=== PATIENT | male | born 1975 | race African-American/Black ===

== ENCOUNTER 2017-09-02 00:38 | Emergency (ER) | payer MEDICAID ==
[~2017-09-02] VITALS: Ht 167.6 cm; Wt 65.8 kg
[2017-09-02 00:40] VITALS: BP 142/84
--- NOTE | 2017-09-02 00:44 | Emergency Room Report ---
History of Present Illness General Chief Complaint: Substance Abuse Source: Patient, EMS Present Illness HPI Is a 42-year-old male who is homeless. He was in a parking lot of a nearby apartment complex. Security called 911. Patient said that he was using methamphetamine and hour prior to arrival. Also said that he has a crazy ex- girlfriend whose been following him. He denies suicidal thoughts or homicidal thought. No other complaint. Allergies: Coded Allergies: No Known Allergies (Unverified , 09/02/17) Patient History Past Medical History: see triage record, old chart reviewed Past Surgical History: other Pertinent Family History: none Social History: Reports: smoking, drug use Immunizations: other Reviewed Nursing Documentation: PMH: Agreed, PSxH: Agreed Review of Systems Eye: Denies: eye pain, blurred vision ENT: Denies: ear pain, nose congestion, throat swelling Respiratory: Denies: cough, shortness of breath Cardiovascular: Denies: chest pain, palpitations Gastrointestinal: Denies: abdominal pain, diarrhea, nausea, vomiting Musculoskeletal: Denies: back pain, joint pain Skin: Denies: rash Neurological: Denies: headache, numbness Endocrine: Denies: increased thirst, increased urine Hematologic/Lymphatic: Denies: easy bruising All Other Systems: negative except mentioned in HPI Physical Exam Vital Signs Date Time Temp Pulse Resp B/P (MAP) Pulse Ox O2 Delivery O2 Flow Rate FiO2 09/02/17 00:33 98.6 88 18 142/84 100 Room Air vitals normal Sp02 EP Interpretation: reviewed, normal General Appearance: well appearing, no apparent distress, alert Head: normocephalic, atraumatic Eyes: bilateral eye PERRL, bilateral eye EOMI ENT: hearing grossly normal, normal pharynx Neck: full range of motion, supple, no meningismus Respiratory: chest non-tender, lungs clear, normal breath sounds Cardiovascular #1: regular rate, rhythm, no murmur Gastrointestinal: normal bowel sounds, non tender, no mass, no organomegaly, no bruit, non-distended Musculoskeletal: back normal, gait/station normal, normal range of motion Psychiatric: mood/affect normal Skin: warm/dry Medical Decision Making Diagnostic Impression: Primary Impression: Substance abuse ER Course patient with substance abuse. No suicidal thought homicidal thought. No criteria for 5150. We'll discharge home. This patient is a chronic risk of self injury due to poor impulse control, limited coping skills, and judgment intermittently impaired by intoxication. I believe that the available clinical evidence to suggest that these characteristics derived primarily from personality disorder and are likely very stable over time. Hospitalization would likely attenuate risk of self-harm only during nursing home period, without lasting risk reduction. Serious self-harm , while possible, would likely be inadvertent, and because of impulsivity, and foreseeable. For these reasons, I do not believe hospitalization would provide meaningful reduction in risk of self-harm. Last Vital Signs Date Time Temp Pulse Resp B/P (MAP) Pulse Ox O2 Delivery O2 Flow Rate FiO2 09/02/17 00:33 98.6 88 18 142/84 100 Room Air Status: improved Disposition: HOME, SELF-CARE Condition: Stable Patient Instructions: Substance Use Disorder Additional Instructions: Stop using drugs. Followup with rehabilitation in 7 days. Return if worse. WILLIAM ARMENTA M.D. Sep 02, 2017 00:44
[2017-09-02 00:59] VITALS: BP 142/84
== END 2017-09-02 01:03 | disposition home or self-care (01) ==
LOC: EDBD 00:38 → EMR 01:03
DX: F19.10 Other psychoactive substance abuse, uncomplicated (principal); F17.200 Nicotine dependence, unspecified, uncomplicated
CPT/HCPCS: 99282

== ENCOUNTER 2017-09-02 02:54 | Emergency (ER) | payer MEDICAID ==
[~2017-09-02] VITALS: Ht 167.6 cm; Wt 65.8 kg
[2017-09-02 03:25] VITALS: BP 130/79
--- NOTE | 2017-09-02 03:39 | Emergency Room Report ---
History of Present Illness General Chief Complaint: Behavioral Complaint Source: Patient Present Illness HPI Is a 42-year-old male whom I saw earlier today. He checked in initially he because of drug abuse and hearing voices. He was in the waiting room and walked outside came right back and rechecked in. He does want a place to sleep. Denies any other complaint. Said he is hearing voices. Is a chronic problem. No suicidal thought homicidal thought. No other complaint. Allergies: Coded Allergies: No Known Allergies (Unverified , 09/02/17) Patient History Past Medical History: see triage record, old chart reviewed, psych hx Past Surgical History: other Pertinent Family History: none Social History: Reports: alcohol use, drug use Immunizations: other Reviewed Nursing Documentation: PMH: Agreed, PSxH: Agreed Nursing Documentation-PMH Past Medical History: No History, Except For Hx Cardiac Problems: No - HIV+, AIDS Hx Seizures: Yes Review of Systems Eye: Denies: eye pain, blurred vision ENT: Denies: ear pain, nose congestion, throat swelling Respiratory: Denies: cough, shortness of breath Cardiovascular: Denies: chest pain, palpitations Gastrointestinal: Denies: abdominal pain, diarrhea, nausea, vomiting Musculoskeletal: Denies: back pain, joint pain Skin: Denies: rash Neurological: Denies: headache, numbness Endocrine: Denies: increased thirst, increased urine Hematologic/Lymphatic: Denies: easy bruising All Other Systems: negative except mentioned in HPI Physical Exam Vital Signs Date Time Temp Pulse Resp B/P (MAP) Pulse Ox O2 Delivery O2 Flow Rate FiO2 09/02/17 03:25 98.6 84 17 130/79 100 Room Air vitals is normal Sp02 EP Interpretation: reviewed, normal General Appearance: well appearing, no apparent distress, alert Head: normocephalic, atraumatic Eyes: bilateral eye PERRL, bilateral eye EOMI ENT: hearing grossly normal, normal pharynx Neck: full range of motion, supple, no meningismus Respiratory: chest non-tender, lungs clear, normal breath sounds Cardiovascular #1: regular rate, rhythm, no murmur Gastrointestinal: normal bowel sounds, non tender, no mass, no organomegaly, no bruit, non-distended Musculoskeletal: back normal, gait/station normal, normal range of motion Psychiatric: mood/affect normal Skin: warm/dry Medical Decision Making Diagnostic Impression: Primary Impression: Psychosis Qualified Codes: F23 - Brief psychotic disorder ER Course Patient presents with drug abuse psychosis. He is otherwise stable. No fracture 5150. No suicidal thought homicidal thought. We'll discharge home. This patient is a chronic risk of self injury due to poor impulse control, limited coping skills, and judgment intermittently impaired by intoxication. I believe that the available clinical evidence to suggest that these characteristics derived primarily from personality disorder and are likely very stable over time. Hospitalization would likely attenuate risk of self-harm only during penitentiary period, without lasting risk reduction. Serious self-harm , while possible, would likely be inadvertent, and because of impulsivity, and foreseeable. For these reasons, I do not believe hospitalization would provide meaningful reduction in risk of self-harm. Last Vital Signs Date Time Temp Pulse Resp B/P (MAP) Pulse Ox O2 Delivery O2 Flow Rate FiO2 09/02/17 03:25 98.6 84 17 130/79 100 Room Air Status: improved Disposition: HOME, SELF-CARE Condition: Stable Patient Instructions: Self-Destructive Behavior Additional Instructions: Followup with your DrJohn in 7 days. Followup with mental health. Return if worse. WILLIAM ARMENTA M.D. Sep 02, 2017 03:39
[2017-09-02 04:00] VITALS: BP 130/79
== END 2017-09-02 04:00 | disposition home or self-care (01) ==
LOC: EMR 03:52
DX: F23 Brief psychotic disorder (principal)
CPT/HCPCS: 99282